=== PATIENT | female | born 1975 | race Caucasian/White ===

== ENCOUNTER 2017-08-04 07:50 | Emergency (ER) | payer MEDICAID ==
[2017-08-04] MEDS ORDERED: ACETAMINOPHEN 325 MG TABLET PO ONE (08:41)
[2017-08-04] MEDS ORDERED: ALBUTEROL SULFATE 2.5 MG/0.5 ML VIAL.NEB IH ONE ×2 (08:41→08:46)
[2017-08-04] MEDS ORDERED: ACETAMINOPHEN 325 MG TABLET ONE (08:46)
--- NOTE | 2017-08-04 08:46 | ERNOTE ---
Time Seen by Provider: 08/04/17 08:36 Stated Complaint: SOB FEVER WHOLE BODY ACHES Presenting Symptoms:: cough, fever Source: patient Exam Limitations: no limitations Immunizations: IMMUNIZATION HX Immunizations Up to Date Yes History of Influenza Vaccine No Hx Pneumococcal Vaccination No Allergies/Adverse Reactions: Allergies No Known Allergies Allergy (Verified 08/04/17 08:04) Home Medications: HOME MEDICATIONS Albuterol Sulfate [Proair Hfa] 2 puff IH Q4H PRN #1 inhaler 08/04/17 [Last Taken Unknown] Doxycycline Monohydrate 100 mg PO BID #20 tablet 08/04/17 [Last Taken Unknown] - History of Present Ilness Narrative: Patient started with URI symptoms, fever and body aches five days ago. She was seen in the walk in clinic, influenza test was negative and she started to feel better. Last night she started to feel worse again, body aches, fever, dry cough , feels like she can't get a deep breath in. Timing: getting worse Severity: moderate Frequency/Possible Cause: Reports: occasional episodes Modifying Factors - Improves: Reports: rest Modifying Factors - Worsens: Reports: activity, deep breath Associated Symptoms: Reports: cough, shortness of breath, nasal drainage, fever/ chills. Denies: chest pain/soreness, wheezing, facial pain, sore throat Prior Treatment: Reports: recently seen. Denies: currently on antibiotics Review of Systems - Review of Systems Constitutional: Present: recent illness, fever, chills EYE: Absent: vision changes ENT: Present: nose congestion, nasal drainage. Absent: sore throat Respiratory: Present: See HPI, shortness of breath, cough Cardiology: Absent: chest pain Gastrointestinal/Abdominal: Absent: nausea, vomiting, abdominal pain Genitourinary: Present: no symptoms reported Musculoskeletal: Present: See HPI Skin: Absent: rash Neurological: Absent: headache, weakness, numbness - Patient's Past Medical History Patient History - Medical: Migraines, Other - uveitis Patient History - Cardiac/Respiratory: No pertinent hx Patient History - Cancer: No Hx of Cancer Patient History - Surgical Procedures: Tubal Ligation Patient History - Other: None LMP (females 10-50): 3 weeks - Social History Living Situations: home Abuse History: No History of abuse Psych History: Hx of Anxiety Smoking Status: Current every day smoker Alcohol Use: none Drug Use: none - Immunizations Immunizations Up to Date: Yes Hx Pneumococcal Vaccination: No History of Influenza Vaccine: No Physical Exam - Physical Exam General Appearance: Present: wd/wn, alert, no apparent distress Head Exam: Present: normal inspection Eye Exam: Normal inspection: bilateral Ears, Nose, Throat: Present: normal except -, nasal congestion, normal pharynx Neck: Absent: lymphadenopathy (R), lymphadenopathy (L) Respiratory: Present: no respiratory distress, expiration (prolonged), rales - right base, don't clear with coughing Cardiovascular/Chest: Present: regular rate, rhythm, no murmur Neurological Exam: Present: alert, oriented, normal mood/affect Skin Exam: Present: normal color, warm/dry ED Progress - Results and Orders Patient's Lab Results:: I have reviewed the patient's lab results. - Vital Signs Patient's Vital Signs:: I have reviewed the patient's vital signs. Vital Signs: Vital Signs 08/04/17 08/04/17 07:58 08:25 Temperature 38.1 C H Pulse Rate 107 H 107 H Respiratory 16 16 Rate Blood Pressure 123/76 111/68 O2 Sat by Pulse 96 98 Oximetry - X-Ray X-Ray #1 X-Ray: chest - no acute Interpretation: Reviewed by me - Progress/Reassessment Chief Complaint: Dyspnea Progress Note-Subjective: 08/04/17 09:50 feeling better after neb treatment, still wheezing/rales right lung base, also elevated WBC will treat with abx plan and results discussed with patient Departure Clinical Impression: Bronchitis - Departure Disposition: Home self-care Condition: Good Instructions: Acute Bronchitis, [id number], Form - Excuse from Work, School, or Physical Activity Referrals: Tony Camejo DO [Staff Physician] - Prescriptions: Albuterol Sulfate [Proair Hfa] 2 puff IH Q4H PRN #1 inhaler PRN Reason: Shortness Of Breath Doxycycline Monohydrate 100 mg PO BID #20 tablet
[2017-08-04 08:52] LABS: Hematocrit 39.7 % (37.0-47.0); Hemoglobin 14.2 gm/dL (12.5-16.0); Mean Cell Volume 96.6 fl (78-100); Mean Corpuscular Hemoglobin 34.5 pg (27-31); Mean Corpuscular Hgb Conc 35.8 g/dl (32-36); Mean Platelet Volume 10.4 fl (6.0-9.5); Neutrophil # 10.8 K/mm3 (1.3-6.0); Neutrophil % 87.4 % (42-75.0); Platelet Count 212 K/mm3 (150-450); Red Blood Count 4.11 M/mm3 (4.2-5.4); Red Cell Distribution Width 11.9 % (11.5-14.0); White Blood Count 12.4 K/mm3 (4.0-10.5)
[2017-08-04 09:05] LABS: Albumin * 3.8 gm/dl (3.4-5.0); Anion Gap 11.1 mmol/L (6.8-13.8); BUN/Creatinine Ratio 9.6 (9.0-21.6); Bilirubin, Total 0.8 mg/dL (0.0-1.1); Calcium * 8.2 mg/dL (7.9-10.9); Carbon Dioxide 25.2 mmol/L (24-32.6); Potassium 3.3 mmol/L (3.4-4.6); Total Protein 7.9 gm/dL (6.2-8.2)
[2017-08-04 09:55] VITALS: BP 136/42
== END 2017-08-04 09:57 | disposition home or self-care (01) ==
LOC: ER 07:50
DX: J20.9 Acute bronchitis, unspecified (principal); G43.909 Migraine, unspecified, not intractable, without status migrainosus; F17.210 Nicotine dependence, cigarettes, uncomplicated